=== PATIENT | male | born 1970 | race American Indian/Alaskan Native ===

== ENCOUNTER 2021-06-08 22:57 | Observation (INO) | payer OTHER ==
[2021-06-08] MEDS ORDERED: NITROGLYCERIN 0.4 MG TAB SUBL SL PRN (22:59)
[2021-06-08] MEDS ORDERED: SODIUM CHLORIDE 0.9% 1000 ML 1,000 ML IV ONE (22:59)
--- NOTE | 2021-06-08 23:03 | Emergency Department Report ---
ED General Adult HPI - General Stated complaint: CHEST PAIN Time Seen by Provider: 06/08/21 22:59 - History of Present Illness Initial comments: Patient presents from nursing home by EMS secondary to chest pain. He has been having a 2-day history of a substernal chest pain described as squeezing and tightness. This does not radiate or migrate. He has felt slightly short of breath. He has not been diaphoretic. Patient states that the pain is worse with exertion. It seems to improve with rest but not resolved. Outpatient labs were obtained and resulted today. His troponin was elevated. Patient was transferred here for further management. He is still having pain upon arrival. There is no history of swelling in the legs. There is no history of recent trauma. - Related Data Allergies Allergy/AdvReac Type Severity Reaction Status Date / Time No Known Allergies Allergy Verified 06/08/21 23:11 ED Review of Systems ROS: Stated complaint: CHEST PAIN Other details as noted in HPI Comment: All other systems reviewed and negative Constitutional: denies: fever Eyes: denies: vision change ENT: denies: ear pain Respiratory: denies: cough Cardiovascular: as per HPI Endocrine: denies: unexplained weight loss Gastrointestinal: denies: abdominal pain Genitourinary: denies: dysuria Musculoskeletal: denies: back pain Skin: denies: rash Neurological: denies: headache Hematological/Lymphatic: denies: easy bruising ED Past Medical Hx - Past Medical History Previous Medical History?: Yes Hx Heart Attack/AMI: Yes Hx Congestive Heart Failure: Yes - Family History Family history: CAD/[place] ED Physical Exam - General Limitations: No Limitations, Other (Pulse ox was noted to normal. Is not hypoxic.) General appearance: alert, in no apparent distress - Head Head exam: Present: atraumatic, normocephalic, normal inspection - Eye Eye exam: Present: normal appearance, EOMI. Absent: scleral icterus - ENT ENT exam: Present: normal exam, normal orophraynx, normal external ear exam - Neck Neck exam: Present: normal inspection. Absent: meningismus - Respiratory Respiratory exam: Present: normal lung sounds bilaterally. Absent: respiratory distress - Cardiovascular Cardiovascular Exam: Present: regular rate, normal rhythm - GI/Abdominal GI/Abdominal exam: Present: soft. Absent: tenderness - Extremities Exam Extremities exam: Present: normal capillary refill. Absent: calf tenderness - Back Exam Back exam: Absent: CVA tenderness (R), CVA tenderness (L) - Neurological Exam Neurological exam: Present: alert, oriented X3, CN II-XII intact, reflexes normal. Absent: motor sensory deficit - Psychiatric Psychiatric exam: Present: normal affect, normal mood - Skin Skin exam: Present: warm, dry ED Course Vital Signs 06/08/21 06/08/21 06/08/21 23:02 23:22 23:25 Temperature 97.6 F Pulse Rate 67 71 Respiratory 13 14 Rate Blood Pressure 140/105 140/105 O2 Sat by Pulse 97 97 Oximetry - Reevaluation(s) Reevaluation #1: 06/08/21 23:02 EMS was met upon arrival. Labs and EKG were ordered. Aspirin and nitrates have been ordered. Reevaluation #2: 06/09/21 00:20 Labs of been noted. We will proceed with admission. ED Medical Decision Making - Lab Data Result diagrams: 06/08/21 23:05 06/08/21 23:05 - EKG Data -: EKG Interpreted by Me - EKG Data 06/09/21 00:13 EKG shows a normal sinus rhythm at 69 with LVH. Patient has a QRS of 105 which is normal. QT corrected is normal at 459. Patient has no ST elevation to suggest infarct. There are T wave inversions in 1 and aVL as well as V5 and V6. There is no ST elevation to suggest STEMI. There is artifact noted. - Radiology Data Radiology results: report reviewed - Medical Decision Making Patient presented from nursing home with chest pain. He has an elevated troponin. He has elevated BUN and creatinine. He acknowledges the fact that he was told that his kidneys are "not working right." We do not have any old labs available for comparison. Patient remains pain-free after sublingual nitro. He will be admitted for serial enzymes and hydration. Repeat labs can be completed in the morning. At this time, there is no radiographic evidence of pneumonia to account for his pain. This is not pleuritic. He is not hypoxic. I do not believe this represents PE. He does not have a wide mediastinum or pulse deficit to suggest aortic dissection. Critical care attestation.: If time is entered above; I have spent that time in minutes in the direct care of this critically ill patient, excluding procedure time. ED Disposition Clinical Impression: Precordial chest pain, Elevated troponin, PEÑA (acute kidney injury) Disposition: 09 ADMITTED INPATIENT Is pt being admited?: Yes Condition: Stable Instructions: Nonspecific Chest Pain, Adult
[2021-06-08] MEDS ORDERED: ASPIRIN 81 MG TAB CHEW PO ONE (23:30)
[2021-06-08 23:33] LABS: Basophils % (Auto) 0.4 % (0.0-1.8); Eosinophils # (Auto) 0.1 K/mm3 (0.0-0.4); Eosinophils % (Auto) 1.1 % (0.0-4.3); Hematocrit 40.1 % (35.5-45.6); Hemoglobin 13.6 gm/dl (11.8-15.2); Lymphocytes # (Auto) 1.9 K/mm3 (1.2-5.4); Mean Corpuscular HGB Conc 34 % (32-34); Mean Corpuscular Volume 97 fl (84-94); Monocytes # (Auto) 0.5 K/mm3 (0.0-0.8); Monocytes % (Auto) 6.6 % (0.0-7.3); Platelet Count 168 K/mm3 (140-440); Red Blood Count 4.15 M/mm3 (3.65-5.03); Red Cell Distribution Width 13.8 % (13.2-15.2)
[2021-06-08 23:45] LABS: Calcium 9.6 mg/dL (8.4-10.2)
--- NOTE | 2021-06-09 00:03 | XRay Report ---
CHEST 1 VIEW INDICATION / CLINICAL INFORMATION: Chest Pain. FINDINGS: SUPPORT DEVICES: None. HEART / MEDIASTINUM: Borderline cardiomegaly. LUNGS / PLEURA: Small right pleural effusion. The left lung is clear. Signer Name: Ronnie Pace MD Signed: 06/08/2021 11:59 PM Workstation Name: [id number]
[2021-06-09] MEDS ORDERED: ALUM-MAG HYDROXIDE-SIMETHICONE 200-200-20MG/5ML ORAL LIQD 30 ML PO PRN (00:44)
[2021-06-09] MEDS ORDERED: ACETAMINOPHEN 325 MG TAB PO PRN (00:44)
[2021-06-09] MEDS ORDERED: MAGNESIUM HYDROXIDE (MOM) ORAL LIQD UDC PO PRN (00:44)
[2021-06-09] MEDS ORDERED: ONDANSETRON 4 MG/2 ML INJ IV PRN (00:44)
[2021-06-09] MEDS ORDERED: METOCLOPRAMIDE 10 MG/2 ML INJ IV PRN (00:44)
[2021-06-09] MEDS ORDERED: oxyCODONE /ACETAMINOPHEN 5-325MG TAB PO PRN (00:44)
[2021-06-09] MEDS ORDERED: MORPHINE 2 MG/1 ML INJ IV PRN (00:44)
[2021-06-09] MEDS ORDERED: SENNOSIDES 8.6 MG TAB PO PRN (00:44)
[2021-06-09] MEDS ORDERED: MORPHINE 4 MG/1 ML INJ IV PRN (00:44)
[2021-06-09] MEDS ORDERED: traZODone 50 MG TAB PO PRN (00:54)
--- NOTE | 2021-06-09 01:03 | History and Physical Report ---
History of Present Illness Date of examination: 06/09/21 Date of admission: 06/09/21 Chief complaint: Chest pain History of present illness: Patient presents from skilled nursing by EMS secondary to chest pain. Patient reports 2- day history of a substernal chest pain. He described it as squeezing and tightness. Patient reported that he has a history of heart problems and is being seen in [place] by paper machine backtender. His blood work showed elevated troponins. His kidney function is reduced with elevated creatinine. Patient also reported that he has kidney problem and has been seen by metal spray operator also in [place]. Per ED notes, there is no previous medical record to compare with patient status. I discussed with the attendingpatient is started on heparin drip. Bid Manager has been consulted. Echocardiogram ordered. Patient admits tobacco use, but he denies chronic alcohol use and illicit drug use. Past History Past Medical History: hypertension, renal failure Past Surgical History: No surgical history Social history: Lives alone, smoking, full code. denies: alcohol abuse, IV drug use Family history: diabetes (Mother has hypertension and brother has diabetes), hypertension Medications and Allergies Allergies Allergy/AdvReac Type Severity Reaction Status Date / Time No Known Allergies Allergy Verified 06/08/21 23:11 Active Meds: Active Medications Acetaminophen (Acetaminophen 325 Mg Tab) 650 mg PO Q4H PRN PRN Reason: Pain MILD(1-3)/Fever >100.5/MANZANARES Al Hydrox/Mg Hydrox/Simethicone (Alum-Mag Hydroxide-Simethicone 460-694-71pb/5ml Oral Liqd 30 Ml) 30 ml PO Q4H PRN PRN Reason: Indigestion Aspirin (Aspirin Ec 81 Mg Tab) 81 mg PO QDAY SRIDHAR Atorvastatin Calcium (Atorvastatin 40 Mg Tab) 40 mg PO QHS SRIDHAR Sodium Chloride (Nacl 0.9% 1000 Ml) 1,000 mls @ 100 mls/hr IV DIRECT SRIDHAR Magnesium Hydroxide (Magnesium Hydroxide (Mom) Oral Liqd Udc) 30 ml PO Q4H PRN PRN Reason: Constipation Metoclopramide HCl (Metoclopramide 10 Mg/2 Ml Inj) 5 mg IV Q6H PRN PRN Reason: Nausea And Vomiting Morphine Sulfate (Morphine 2 Mg/1 Ml Inj) 2 mg IV Q4H PRN PRN Reason: Pain, Moderate (4-6) Morphine Sulfate (Morphine 4 Mg/1 Ml Inj) 4 mg IV Q4H PRN PRN Reason: Pain , Severe (7-10) Nitroglycerin (Nitroglycerin 0.4 Mg Tab Subl) 0.4 mg SL Q5M PRN PRN Reason: Chest Pain Last Admin: 06/08/21 23:22 Dose: 0.4 mg Documented by: Ondansetron HCl (Ondansetron 4 Mg/2 Ml Inj) 4 mg IV Q8H PRN PRN Reason: Nausea And Vomiting Oxycodone/Acetaminophen (Oxycodone /Acetaminophen 5-325mg Tab) 1 tab PO Q6H PRN PRN Reason: Pain, Moderate (4-6) Senna (Sennosides 8.6 Mg Tab) 8.6 mg PO Q12HR PRN PRN Reason: Constipation Sodium Chloride (Sodium Chloride 0.9% 10 Ml Flush Syringe) 10 ml IV BID SRIDHAR Trazodone HCl (Trazodone 50 Mg Tab) 50 mg PO QHS PRN PRN Reason: Insomnia Review of Systems Ears, nose, mouth and throat: no epistaxis, no bleeding gums Cardiovascular: chest pain, palpitations, high blood pressure Respiratory: no congestion Gastrointestinal: no melena Rectal: no itching, no hemorrhoids Integumentary: no rash, no pruritis, no redness Psychiatric: no hypersomnia Hematologic/Lymphatic: no easy bruising, no easy bleeding, no lymphadenopathy, no lymphedema Exam - Constitutional Vitals: Temp Pulse Resp BP Pulse Ox 97.6 F 71 14 140/105 97 06/08/21 23:02 06/08/21 23:22 06/08/21 23:25 06/08/21 23:22 06/08/21 23:25 General appearance: Present: mild distress, well-nourished - EENT Eyes: Present: PERRL ENT: hearing intact, clear oral mucosa - Neck Neck: Present: supple, normal ROM - Respiratory Respiratory effort: normal Respiratory: bilateral: CTA - Cardiovascular Heart rate: 74 Heart Sounds: Present: S1 & S2. Absent: rub, click - Extremities Extremities: pulses symmetrical, No edema Peripheral Pulses: within normal limits - Abdominal General gastrointestinal: Present: soft, non-tender, non-distended, normal bowel sounds Male genitourinary: Present: normal - Integumentary Integumentary: Present: clear, warm, dry - Musculoskeletal Musculoskeletal: gait normal, strength equal bilaterally - Psychiatric Psychiatric: appropriate mood/affect, intact judgment & insight, cooperative - Neurologic Neurologic: CNII-XII intact, moves all extremities - Allied Health Allied health notes reviewed: nursing HEART Score - HEART Score Troponin: Troponin T 0.132 ng/mL (0.00-0.029) H* 06/08/21 23:05 Results - Labs CBC & Chem 7: 06/09/21 01:08 06/08/21 23:05 Labs: Abnormal lab results 06/08/21 06/08/21 Range/Units 23:05 23:05 MCV 97 H (84-94) fl MCH 33 H (28-32) pg Potassium 5.3 H (3.6-5.0) mmol/L Chloride 108.0 H (98-107) mmol/L Carbon Dioxide 18 L (22-30) mmol/L BUN 58 H (9-20) mg/dL Creatinine 4.9 H (0.8-1.3) mg/dL Glucose 67 L (75-100) mg/dL Troponin T 0.132 H* (0.00-0.029) ng/mL Assessment and Plan - Patient Problems (1) PEÑA (acute kidney injury) Current Visit: Yes Status: Acute Plan to address problem: Unknown etiology/if chronicno previous lab values to compare IV hydration and monitor kidney function Renal ultrasound and metal spray operator consult Urine osmolarity and urine sodium (2) Elevated troponin Current Visit: Yes Status: Acute Plan to address problem: Questionable causecardiac/acute kidney injury Trend troponin Discussed with the attendingstarted on heparin drip (3) Precordial chest pain Current Visit: Yes Status: Acute Plan to address problem: Chest pain improving at time of assessment Cardioprotective measures antiplatelet and statin Echocardiogram ordered Consults cardiologistfollow-up with plan of care (4) Hyperkalemia Current Visit: Yes Status: Acute Plan to address problem: Likely secondary to kidney injury K oxalate x1 Monitor potassium level (5) DVT prophylaxis Current Visit: Yes Status: Acute Plan to address problem: Heparin drip
[2021-06-09] MEDS ORDERED: hydrALAZINE 20 MG/1 ML INJ IV PRN ×2 (01:21→04:00)
[2021-06-09] MEDS ORDERED: SODIUM POLYSTYRENE 15 GM/60 ML ORAL LIQD PO ONE (01:41)
[2021-06-09 02:00] LABS: Hematocrit 37.6 % (35.5-45.6); Hemoglobin 12.9 gm/dl (11.8-15.2)
[2021-06-09 02:11] LABS: INR 1.03 (0.87-1.13)
[2021-06-09 02:12] LABS: Partial Thromboplastin Time 25.3 Sec. (24.2-36.6)
[2021-06-09 02:26] LABS: Chol/HDL Ratio 4.16 %
[2021-06-09] MEDS: HEPARIN/ 0.45% NACL DRIP 25,000 UNIT/500 ML BAG IV SCH (02:48)
[2021-06-09] MEDS: SODIUM CHLORIDE 0.9% 1000 ML 1,000 ML IV SCH ×2 (04:20→14:58)
[2021-06-09 04:54] LABS: Osmolality,Urine 378 Mosm/kg
--- NOTE | 2021-06-09 10:57 | Consultation ---
History of Present Illness Consult date: 06/09/21 Consult reason: chest pain, congestive heart failure History of present illness: 51-year-old -English male presenting from the [facility] with symptoms of chest pain and chest tightness. As per patient's history he has a history of heart failure and is followed by police dispatcher at [facility]. He was told that his heart was weak but a cardiac catheterization could not be done because of his kidney failure. His chest pain is directly substernal nonexertional described as a chest tightness. Past History Past Medical History: heart failure, hypertension, renal failure Past Surgical History: No surgical history Social history: Lives alone, smoking, alcohol abuse, IV drug use, full code Family history: diabetes (Mother has hypertension and brother has diabetes), hypertension Medications and Allergies Allergies Allergy/AdvReac Type Severity Reaction Status Date / Time No Known Allergies Allergy Verified 06/08/21 23:11 Active Meds: Active Medications Acetaminophen (Acetaminophen 325 Mg Tab) 650 mg PO Q4H PRN PRN Reason: Pain MILD(1-3)/Fever >100.5/MANZANARES Al Hydrox/Mg Hydrox/Simethicone (Alum-Mag Hydroxide-Simethicone 141-164-86nd/5ml Oral Liqd 30 Ml) 30 ml PO Q4H PRN PRN Reason: Indigestion Aspirin (Aspirin Ec 81 Mg Tab) 81 mg PO QDAY SRIDHAR Atorvastatin Calcium (Atorvastatin 40 Mg Tab) 40 mg PO QHS SRIDHAR Hydralazine HCl (Hydralazine 20 Mg/1 Ml Inj) 5 mg IV Q4H PRN PRN Reason: Hypertension Sodium Chloride (Nacl 0.9% 1000 Ml) 1,000 mls @ 100 mls/hr IV DIRECT SRIDHAR Last Admin: 06/09/21 04:20 Dose: 100 mls/hr Documented by: Heparin Sodium/Sodium Chloride (Heparin/ 0.45% Nacl-25,000 Unit/500 Ml) 25,000 unit in 500 mls @ 21 mls/hr IV TITR SRIDHAR; Protocol Last Admin: 06/09/21 02:48 Dose: 1,050 units/hr, 21 mls/hr Documented by: Magnesium Hydroxide (Magnesium Hydroxide (Mom) Oral Liqd Udc) 30 ml PO Q4H PRN PRN Reason: Constipation Metoclopramide HCl (Metoclopramide 10 Mg/2 Ml Inj) 5 mg IV Q6H PRN PRN Reason: Nausea And Vomiting Morphine Sulfate (Morphine 2 Mg/1 Ml Inj) 2 mg IV Q4H PRN PRN Reason: Pain, Moderate (4-6) Morphine Sulfate (Morphine 4 Mg/1 Ml Inj) 4 mg IV Q4H PRN PRN Reason: Pain , Severe (7-10) Nitroglycerin (Nitroglycerin 0.4 Mg Tab Subl) 0.4 mg SL Q5M PRN PRN Reason: Chest Pain Last Admin: 06/08/21 23:22 Dose: 0.4 mg Documented by: Ondansetron HCl (Ondansetron 4 Mg/2 Ml Inj) 4 mg IV Q8H PRN PRN Reason: Nausea And Vomiting Oxycodone/Acetaminophen (Oxycodone /Acetaminophen 5-325mg Tab) 1 tab PO Q6H PRN PRN Reason: Pain, Moderate (4-6) Senna (Sennosides 8.6 Mg Tab) 8.6 mg PO Q12HR PRN PRN Reason: Constipation Sodium Chloride (Sodium Chloride 0.9% 10 Ml Flush Syringe) 10 ml IV BID SRIDHAR Trazodone HCl (Trazodone 50 Mg Tab) 50 mg PO QHS PRN PRN Reason: Insomnia Review of Systems Constitutional: no weight loss, no weight gain, no sweats Ears, nose, mouth and throat: no deferred, no ear pain, no ear discharge, no tinnitis Cardiovascular: no chest pain Respiratory: shortness of breath, dyspnea on exertion, no cough, no cough with sputum, no excessive sputum, no hemoptysis Gastrointestinal: no abdominal pain, no nausea, no diarrhea Genitourinary Male: no dysuria, no hematuria, no flank pain Musculoskeletal: no neck stiffness, no neck pain, no shooting arm pain Integumentary: no deferred, no rash, no pruritis, no redness Neurological: no head injury, no transient paralysis, no paralysis, no weakness, no parathesias, no numbness, no tingling Psychiatric: no anxiety, no memory loss, no change in sleep habits Endocrine: no cold intolerance, no heat intolerance, no polyphagia, no excessive thirst, no polydipsia, no polyuria Hematologic/Lymphatic: no easy bruising, no easy bleeding Allergic/Immunologic: no urticaria, no allergic rhinitis, no wheezing Physical Examination Vital Signs Temp Pulse Resp BP Pulse Ox 97.6 F 67 13 140/105 97 06/08/21 23:02 06/08/21 23:02 06/08/21 23:02 06/08/21 23:02 06/08/21 23:02 General appearance: no acute distress HEENT: Positive: PERRL, Normocephaly, Mucus Membranes Moist Neck: Positive: neck supple, trachea midline. Negative: JVD/HJR Cardiac: Positive: Regular Rate, S1/S2, S3, S4, PMI, Dilated, Laterally Di splaced Lungs: Positive: clear to auscultation, No Wheeze, Rales, Rhonchi Neuro: Positive: Grossly Intact Abdomen: Positive: Unremarkable, Soft, Active Bowel Sounds Skin: Positive: Clear. Negative: Rash Extremities: Absent: edema Results 06/09/21 01:08 06/08/21 23:05 Coagulation 06/09/21 Range/Units 01:08 PT 14.0 (12.2-14.9) Sec. INR 1.03 (0.87-1.13) APTT 25.3 (24.2-36.6) Sec. Lipids 06/08/21 Range/Units 23:05 Triglycerides 135 (2-149) mg/dL Cholesterol 200 H (50-199) mg/dL HDL Cholesterol 48 (40-59) mg/dL Cholesterol/HDL Ratio 4.16 % CBC 06/08/21 06/09/21 Range/Units 23:05 01:08 WBC 7.4 (4.5-11.0) K/mm3 RBC 4.15 (3.65-5.03) M/mm3 Hgb 13.6 12.9 (11.8-15.2) gm/dl Hct 40.1 37.6 (35.5-45.6) % Plt Count 168 154 (140-440) K/mm3 Lymph # (Auto) 1.9 (1.2-5.4) K/mm3 Barron # (Auto) 0.5 (0.0-0.8) K/mm3 Eos # (Auto) 0.1 (0.0-0.4) K/mm3 Baso # (Auto) 0.0 (0.0-0.1) K/mm3 Comprehensive Metabolic Panel 06/08/21 Range/Units 23:05 Sodium 143 (137-145) mmol/L Potassium 5.3 H (3.6-5.0) mmol/L Chloride 108.0 H (98-107) mmol/L Carbon Dioxide 18 L (22-30) mmol/L BUN 58 H (9-20) mg/dL Creatinine 4.9 H (0.8-1.3) mg/dL Glucose 67 L (75-100) mg/dL Calcium 9.6 (8.4-10.2) mg/dL - EKG Interpretation EKG: sinus rhythm, normal axis EKG interpretations - Telemetry EKG Rhythm: Sinus Rhythm Assessment and Plan 1. Chest pain rule out ischemic coronary artery disease 2. Chronic combined systolic and diastolic heart failure 3. Dilated cardiomyopathy 4. Chronic kidney disease stage IV 5. Essential hypertension. 6. Elevated serum troponin levels equivocal in the setting of chronic kidney disease Echocardiogram shows a dilated eccentric left ventricle with severe global hypokinesis left ventricular ejection fraction is approximately 15% to 20% Plan. Patient is to be started on pre and afterload reducing agent stress myocardial perfusion scan imaging test will be done to assess for the presence and extent of ischemic coronary artery disease. Nephrology consult for fluid and renal management
--- NOTE | 2021-06-09 11:52 | Ultrasound Report ---
ULTRASOUND RENAL INDICATION / CLINICAL INFORMATION: Acute kidney injury. COMPARISON: None available. FINDINGS: RIGHT KIDNEY: Size (in cm): 9.3 - Echogenicity: Increased - Cortical Thickness: Normal. - Hydronephrosis: None. - Cyst or mass: 1.7 cm superior pole right renal cyst. - Stones: None seen. LEFT KIDNEY: Size (in cm): 8.2 - Echogenicity: Increased - Cortical Thickness: Normal. - Hydronephrosis: None. - Cyst or mass: 2 left renal cysts, largest measuring 2.1 cm. - Stones: None seen. URINARY BLADDER: No significant abnormality. FREE FLUID: None. ADDITIONAL FINDINGS: None. IMPRESSION: 1. Diffuse increased cortical echogenicity, consistent with medical renal disease. No evidence of hyd ronephrosis. 2. Bilateral renal cysts. Signer Name: Ashkan Gu MD Signed: 06/09/2021 11:47 AM Workstation Name: [id number]
[2021-06-09] MEDS: ASPIRIN EC 81 MG TAB PO SCH (12:11)
[2021-06-09 12:32] LABS: Calcium 8.9 mg/dL (8.4-10.2)
--- NOTE | 2021-06-09 14:49 | Consultation ---
History of Present Illness - Reason for Consult Consult date: 06/09/21 acute renal failure Requesting physician: SAILAJA RASHEED - History of Present Illness Patient presents from group home by EMS secondary to chest pain. Patient reports 2- day history of a substernal chest pain. He described it as squeezing and tightness. Patient reported that he has a history of heart problems and is being seen in [place] by overage shortage and damage clerk. His blood work showed elevated troponins. His kidney function is reduced with elevated creatinine. Patient also reported that he has kidney problem and has been seen by supervisor uranium processing also in [place]. Per ED notes, there is no previous medical record to compare with patient status. I discussed with the attendingpatient is started on heparin drip. Rn Social Services has been consulted. Echocardiogram ordered. Patient admits tobacco use, but he denies chronic alcohol use and illicit drug use. Past History Past Medical History: hypertension, renal failure Past Surgical History: No surgical history Social history: Lives alone, smoking, full code. denies: alcohol abuse, IV drug use Family history: diabetes (Mother has hypertension and brother has diabetes), hypertension Review of Systems Ears, nose, mouth and throat: no epistaxis, no bleeding gums Cardiovascular: chest pain, palpitations, high blood pressure Respiratory: no congestion Gastrointestinal: no melena Rectal: no itching, no hemorrhoids Integumentary: no rash, no pruritis, no redness Psychiatric: no hypersomnia Hematologic/Lymphatic: no easy bruising, no easy bleeding, no lymphadenopathy, no lymphedema Past History Past Medical History: heart failure, hypertension, renal failure Past Surgical History: No surgical history Social history: Lives alone, smoking, alcohol abuse, IV drug use, full code Family history: diabetes (Mother has hypertension and brother has diabetes), hypertension Medications and Allergies Allergies Allergy/AdvReac Type Severity Reaction Status Date / Time No Known Allergies Allergy Verified 06/08/21 23:11 Active Meds: Active Medications Acetaminophen (Acetaminophen 325 Mg Tab) 650 mg PO Q4H PRN PRN Reason: Pain MILD(1-3)/Fever >100.5/MANZANARES Al Hydrox/Mg Hydrox/Simethicone (Alum-Mag Hydroxide-Simethicone [id number]/5ml Oral Liqd 30 Ml) 30 ml PO Q4H PRN PRN Reason: Indigestion Aspirin (Aspirin Ec 81 Mg Tab) 81 mg PO QDAY [facility] Last Admin: 06/09/21 12:11 Dose: 81 mg Documented by: Atorvastatin Calcium (Atorvastatin 40 Mg Tab) 40 mg PO QHS [facility] Hydralazine HCl (Hydralazine 20 Mg/1 Ml Inj) 5 mg IV Q4H PRN PRN Reason: Hypertension Sodium Chloride (Nacl 0.9% 1000 Ml) 1,000 mls @ 100 mls/hr IV DIRECT SRIDHAR Last Admin: 06/09/21 04:20 Dose: 100 mls/hr Documented by: Heparin Sodium/Sodium Chloride (Heparin/ 0.45% Nacl-25,000 Unit/500 Ml) 25,000 unit in 500 mls @ 21 mls/hr IV TITR SRIDHAR; Protocol Last Titration: 06/09/21 12:07 Dose: 1,100 units/hr, 22 mls/hr Documented by: Magnesium Hydroxide (Magnesium Hydroxide (Mom) Oral Liqd Udc) 30 ml PO Q4H PRN PRN Reason: Constipation Metoclopramide HCl (Metoclopramide 10 Mg/2 Ml Inj) 5 mg IV Q6H PRN PRN Reason: Nausea And Vomiting Morphine Sulfate (Morphine 2 Mg/1 Ml Inj) 2 mg IV Q4H PRN PRN Reason: Pain, Moderate (4-6) Morphine Sulfate (Morphine 4 Mg/1 Ml Inj) 4 mg IV Q4H PRN PRN Reason: Pain , Severe (7-10) Nitroglycerin (Nitroglycerin 0.4 Mg Tab Subl) 0.4 mg SL Q5M PRN PRN Reason: Chest Pain Last Admin: 06/08/21 23:22 Dose: 0.4 mg Documented by: Ondansetron HCl (Ondansetron 4 Mg/2 Ml Inj) 4 mg IV Q8H PRN PRN Reason: Nausea And Vomiting Oxycodone/Acetaminophen (Oxycodone /Acetaminophen 5-325mg Tab) 1 tab PO Q6H PRN PRN Reason: Pain, Moderate (4-6) Senna (Sennosides 8.6 Mg Tab) 8.6 mg PO Q12HR PRN PRN Reason: Constipation Sodium Chloride (Sodium Chloride 0.9% 10 Ml Flush Syringe) 10 ml IV BID [facility] Last Admin: 06/09/21 12:11 Dose: 10 ml Documented by: Trazodone HCl (Trazodone 50 Mg Tab) 50 mg PO QHS PRN PRN Reason: Insomnia Exam - Vital Signs Vital signs: Vital Signs Temp Pulse Resp BP Pulse Ox 97.6 F 67 13 140/105 97 06/08/21 23:02 06/08/21 23:02 06/08/21 23:02 06/08/21 23:02 06/08/21 23:02 - Physical Exam Narrative exam: primary team exam noted, deferred for preservation of PPE Results - Lab Results 06/09/21 01:08 06/09/21 06:42 Most recent lab results Calcium 8.9 mg/dL (8.4-10.2) 06/09/21 06:42 Urine Sodium 135 mmol/L 06/09/21 Unknown Assessment and Plan Impression: * PEÑA on advanced CKD--unsure of baseline stage * metabolic acidosis * Cardiomyopathy--ef 15 to 20% * COVID PUI * HTN Plan: * rec Covid testing * cr better, no emergent indication for STATISTICAL METHODS PROFESSOR today * add bicarb po and low k diet * fluid restriction and follow up 24hr crcl * strict i/os and daily lytes * renal diet * avoid nephrotoxins * cards labs reviewed * renal us noted
[2021-06-09] MEDS: SODIUM BICARBONATE 650 MG TAB PO SCH ×3 (14:58→21:42)
--- NOTE | 2021-06-09 16:03 | Event Note ---
Date: 06/09/21 51-year-old male presented to the hospital with complaints of chest pain Work-up showed elevated creatinine with elevated troponin Placed on heparin drip, cardiology and nephrology consulted Continue to provide medical management, follow daily labs
[2021-06-10 00:09] LABS: Bilirubin,Urine NEG (Negative); Blood,Urine SM (Negative); Color,Urine Straw (Yellow); Mucus,Urine FEW /HPF; Urobilinogen,Urine < 2.0 mg/dL (<2.0); WBC,Urine < 1.0 /HPF (0.0-6.0)
[2021-06-10] MEDS: HEPARIN/ 0.45% NACL DRIP 25,000 UNIT/500 ML BAG IV SCH (00:14)
[2021-06-10] MEDS: SODIUM CHLORIDE 0.9% 1000 ML 1,000 ML IV SCH ×3 (00:15→10:29)
[2021-06-10 03:01] LABS: Basophils % (Auto) 0.5 % (0.0-1.8); Eosinophils # (Auto) 0.1 K/mm3 (0.0-0.4); Eosinophils % (Auto) 1.3 % (0.0-4.3); Hematocrit 38.2 % (35.5-45.6); Hemoglobin 13.1 gm/dl (11.8-15.2); Lymphocytes # (Auto) 1.9 K/mm3 (1.2-5.4); Lymphocytes % (Auto) 28.7 % (13.4-35.0); Mean Corpuscular HGB Conc 34 % (32-34); Mean Corpuscular Volume 96 fl (84-94); Monocytes # (Auto) 0.3 K/mm3 (0.0-0.8); Monocytes % (Auto) 5.1 % (0.0-7.3); Platelet Count 141 K/mm3 (140-440); Red Blood Count 3.99 M/mm3 (3.65-5.03); Red Cell Distribution Width 13.8 % (13.2-15.2)
[2021-06-10 03:10] LABS: Albumin 3.1 g/dL (3.9-5); Calcium 8.5 mg/dL (8.4-10.2)
[2021-06-10 06:58] LABS: Calcium 8.4 mg/dL (8.4-10.2)
[2021-06-10] MEDS ORDERED: HEPARIN 10,000 UNITS/10 ML VIAL IV PRN (08:40)
[2021-06-10 08:46] VITALS: BP 98/61
--- NOTE | 2021-06-10 09:58 | Progress Note ---
Assessment and Plan 1. Chest pain resolved 2. Chronic combined systolic and diastolic heart failure 3. Dilated cardiomyopathy LVEF 15-20% 4. Chronic kidney disease stage IV 5. Essential hypertension. 6. Elevated serum troponin levels equivocal in the setting of chronic kidney disease Echocardiogram shows a dilated eccentric left ventricle with severe global hypokinesis left ventricular ejection fraction is approximately 15% to 20% Plan. Patient is to be started on pre and afterload reducing agent stress myocardial perfusion scan imaging test will be done to assess for the presence and extent of ischemic coronary artery disease. Nephrology consult for fluid and renal management Subjective Date of service: 06/10/21 Interval history: No cardiac symptoms. Objective Vital Signs Temp Pulse Resp BP Pulse Ox 06/10/21 08:23 96 06/10/21 08:14 97.9 F 55 L 18 98/61 99 06/10/21 04:36 98.1 F 86 20 127/81 97 06/09/21 23:59 97.9 F 75 18 151/100 96 06/09/21 22:00 96 06/09/21 21:01 76 06/09/21 20:59 99 06/09/21 20:40 98.2 F 83 18 133/90 98 06/09/21 18:08 141/102 06/09/21 15:59 97.9 F 80 18 141/102 99 06/09/21 15:50 76 06/09/21 14:24 18 98 06/09/21 11:48 98.4 F 75 18 138/100 99 06/09/21 10:11 80 18 141/105 100 06/09/21 10:01 73 13 142/106 99 - Physical Examination HEENT: Positive: PERRL, Normocephaly, Mucus Membranes Moist Neck: Positive: neck supple, trachea midline. Negative: JVD/HJR Cardiac: Positive: Regular Rate, S1/S2, S3, S4, Gallop, PMI, Dilated, Laterally Displaced Lungs: Positive: clear to auscultation, No Wheeze, Rales, Rhonchi Neuro: Positive: Grossly Intact Abdomen: Positive: Unremarkable, Soft, Active Bowel Sounds Skin: Positive: Clear. Negative: Rash Extremities: Absent: edema - Labs and Meds Cardiac Enzymes 06/10/21 Range/Units 02:16 AST 42 H (5-40) units/L CBC 06/10/21 Range/Units 02:16 WBC 6.5 (4.5-11.0) K/mm3 RBC 3.99 (3.65-5.03) M/mm3 Hgb 13.1 (11.8-15.2) gm/dl Hct 38.2 (35.5-45.6) % Plt Count 141 (140-440) K/mm3 Lymph # (Auto) 1.9 (1.2-5.4) K/mm3 Garrett # (Auto) 0.3 (0.0-0.8) K/mm3 Eos # (Auto) 0.1 (0.0-0.4) K/mm3 Baso # (Auto) 0.0 (0.0-0.1) K/mm3 Comprehensive Metabolic Panel 06/09/21 06/10/21 06/10/21 Range/Units 06:42 02:16 06:06 Sodium 141 138 139 (137-145) mmol/L Potassium 5.1 H 4.7 4.8 (3.6-5.0) mmol/L Chloride 109.8 H 107.4 H 110.3 H (98-107) mmol/L Carbon Dioxide 15 L 19 L 18 L (22-30) mmol/L BUN 53 H 57 H 54 H (9-20) mg/dL Creatinine 4.2 H 4.2 H 4.0 H (0.8-1.3) mg/dL Glucose 81 144 H 81 (75-100) mg/dL Calcium 8.9 8.5 8.4 (8.4-10.2) mg/dL AST 42 H (5-40) units/L ALT 46 (7-56) units/L Alkaline Phosphatase 81 (35-129) units/L Total Protein 5.5 L (6.3-8.2) g/dL Albumin 3.1 L (3.9-5) g/dL - Telemetry EKG Rhythm: Sinus Rhythm - EKG Sinus rhythms and dysrhythmias: sinus rhythm
[2021-06-10] MEDS: SODIUM BICARBONATE 650 MG TAB PO SCH (10:30)
[2021-06-10] MEDS: ASPIRIN EC 81 MG TAB PO SCH (10:30)
--- NOTE | 2021-06-10 10:36 | Progress Note ---
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 * added bicarb po and low k diet * add bicarb gtt and follow up CO2 * fluid restriction and follow up 24hr crcl * strict i/os and daily lytes * renal diet * avoid nephrotoxins * cards labs reviewed * renal us noted Subjective Date of service: 06/10/21 Principal diagnosis: peña on ckd Interval history: labs and chart reviewed cards plans noted Objective - Exam Narrative Exam: primary team exam noted, deferred for preservation of PPE - Vital Signs Vital signs: Vital Signs - 12hr 06/09/21 06/10/21 06/10/21 23:59 04:36 08:14 Temperature 97.9 F 98.1 F 97.9 F Pulse Rate 75 86 55 L Respiratory 18 20 18 Rate Blood Pressure 151/100 127/81 98/61 O2 Sat by Pulse 96 97 99 Oximetry 06/10/21 08:23 Temperature Pulse Rate Respiratory Rate Blood Pressure O2 Sat by Pulse 96 Oximetry - Lab 06/10/21 02:16 06/10/21 06:06 Most recent lab results Calcium 8.4 mg/dL (8.4-10.2) 06/10/21 06:06 Urine Sodium 135 mmol/L 06/09/21 Unknown Medications & Allergies - Medications Allergies/Adverse Reactions: Allergies No Known Allergies Allergy (Verified 06/08/21 23:11) Active Medications: Generic Name Dose Route Start Last Admin Trade Name Freq PRN Reason Stop Dose Admin Acetaminophen 650 mg 06/09/21 00:44 Acetaminophen 325 Mg Tab PO Q4H PRN Pain MILD(1-3)/Fever >100.5/MANZANARES Al Hydrox/Mg Hydrox/Simethicone 30 ml 06/09/21 00:44 Alum-Mag Hydroxide-Simethicone 929-230-23ie/5ml Oral Liqd 30 Ml PO Q4H PRN Indigestion Aspirin 81 mg 06/09/21 10:00 06/10/21 10:30 Aspirin Ec 81 Mg Tab PO 81 mg QDAY SRIDHAR Administration Atorvastatin Calcium 40 mg 06/09/21 22:00 06/09/21 21:42 Atorvastatin 40 Mg Tab PO 40 mg QHS SRIDHAR Administration Heparin Sodium (Porcine) 2,800 unit 06/10/21 08:40 Heparin 10,000 Units/10 Ml Vial 40 unit/kg (2800 unit) IV Q6H PRN Anti-Xa Assay < 0.1 units/ml Hydralazine HCl 5 mg 06/09/21 01:21 06/09/21 18:08 Hydralazine 20 Mg/1 Ml Inj IV 5 mg Q4H PRN Administration Hypertension Sodium Chloride 1,000 mls @ 100 mls/hr 06/09/21 00:45 06/10/21 10:29 Nacl 0.9% 1000 Ml IV 100 mls/hr DIRECT SRIDHAR Administration Heparin Sodium/Sodium Chloride 25,000 unit in 500 mls @ 21 mls/hr 06/09/21 01:00 06/10/21 00:14 Heparin/ 0.45% Nacl-25,000 Unit/500 Ml IV 1,100 units/hr TITR SRIDHAR 22 mls/hr Administration Protocol 1,050 UNITS/HR Magnesium Hydroxide 30 ml 06/09/21 00:44 Magnesium Hydroxide (Mom) Oral Liqd Udc PO Q4H PRN Constipation Metoclopramide HCl 5 mg 06/09/21 00:44 Metoclopramide 10 Mg/2 Ml Inj IV Q6H PRN Nausea And Vomiting Morphine Sulfate 2 mg 06/09/21 00:44 Morphine 2 Mg/1 Ml Inj IV Q4H PRN Pain, Moderate (4-6) Morphine Sulfate 4 mg 06/09/21 00:44 Morphine 4 Mg/1 Ml Inj IV Q4H PRN Pain , Severe (7-10) Nitroglycerin 0.4 mg 06/08/21 22:59 06/08/21 23:22 Nitroglycerin 0.4 Mg Tab Subl SL 0.4 mg Q5M PRN Administration Chest Pain Ondansetron HCl 4 mg 06/09/21 00:44 Ondansetron 4 Mg/2 Ml Inj IV Q8H PRN Nausea And Vomiting Oxycodone/Acetaminophen 1 tab 06/09/21 00:44 Oxycodone /Acetaminophen 5-325mg Tab PO Q6H PRN Pain, Moderate (4-6) Senna 8.6 mg 06/09/21 00:44 Sennosides 8.6 Mg Tab PO Q12HR PRN Constipation Sodium Bicarbonate 1,300 mg 06/09/21 16:00 06/10/21 10:30 Sodium Bicarbonate 650 Mg Tab PO 1,300 mg BID SRIDHAR Administration Sodium Chloride 10 ml 06/09/21 10:00 06/10/21 10:30 Sodium Chloride 0.9% 10 Ml Flush Syringe IV 10 ml BID SRIDHAR Administration Trazodone HCl 50 mg 06/09/21 00:54 Trazodone 50 Mg Tab PO QHS PRN Insomnia
[2021-06-10] MEDS ORDERED: SODIUM BICARBONATE 75 MEQ in SODIUM CHLORIDE 0.45% 1000 ML 1,000 ML IV SCH (11:00)
[2021-06-10] MEDS ORDERED: SODIUM CHLORIDE 0.45% 1000 ML 1,000 ML with SODIUM BICARBONATE 75 MEQ IV SCH (11:00)
--- NOTE | 2021-06-10 12:31 | Progress Note ---
Assessment and Plan (1) PEÑA (acute kidney injury) Current Visit: Yes Status: Acute Plan to address problem: Unknown etiology/if chronicno previous lab values to compare IV hydration and monitor kidney function Renal ultrasound and human resources admin consult Urine osmolarity and urine sodium (2) Elevated troponin Current Visit: Yes Status: Acute Plan to address problem: Questionable causecardiac/acute kidney injury Trend troponin Discussed with the attendingstarted on heparin drip (3) Precordial chest pain Current Visit: Yes Status: Acute Plan to address problem: Chest pain improving at time of assessment Cardioprotective measures antiplatelet and statin Echocardiogram ordered Consults cardiologistfollow-up with plan of care (4) Hyperkalemia Current Visit: Yes Status: Acute Plan to address problem: Likely secondary to kidney injury K oxalate x1 Monitor potassium level (5) DVT prophylaxis Current Visit: Yes Status: Acute Plan to address problem: Heparin drip Daily clinical course: 06/10/21: Patient remains on heparin drip, also initiated on bicarbonate drip for metabolic acidosis and PEÑA. Plan for stress test tomorrow Subjective Date of service: 06/10/21 Principal diagnosis: peña on ckd Objective - Constitutional Vitals: Vital Signs - 12hr 06/10/21 06/10/21 06/10/21 04:36 08:14 08:23 Temperature 98.1 F 97.9 F Pulse Rate 86 55 L Respiratory 20 18 Rate Blood Pressure 127/81 98/61 O2 Sat by Pulse 97 99 96 Oximetry 06/10/21 06/10/21 09:00 11:00 Temperature Pulse Rate 82 Respiratory Rate Blood Pressure O2 Sat by Pulse 98 Oximetry - Labs CBC & Chem 7: 06/10/21 02:16 06/10/21 06:06 Labs: Abnormal lab results 06/09/21 06/10/21 06/10/21 Range/Units 06:42 02:16 02:16 MCV 96 H (84-94) fl MCH 33 H (28-32) pg Potassium 5.1 H (3.6-5.0) mmol/L Chloride 109.8 H 107.4 H (98-107) mmol/L Carbon Dioxide 15 L 19 L (22-30) mmol/L BUN 53 H 57 H (9-20) mg/dL Creatinine 4.2 H 4.2 H (0.8-1.3) mg/dL Glucose 144 H (75-100) mg/dL AST 42 H (5-40) units/L Total Protein 5.5 L (6.3-8.2) g/dL Albumin 3.1 L (3.9-5) g/dL 06/10/21 Range/Units 06:06 MCV (84-94) fl MCH (28-32) pg Potassium (3.6-5.0) mmol/L Chloride 110.3 H (98-107) mmol/L Carbon Dioxide 18 L (22-30) mmol/L BUN 54 H (9-20) mg/dL Creatinine 4.0 H (0.8-1.3) mg/dL Glucose (75-100) mg/dL AST (5-40) units/L Total Protein (6.3-8.2) g/dL Albumin (3.9-5) g/dL HEART Score - HEART Score Troponin: Troponin T 0.122 ng/mL (0.00-0.029) H* 06/09/21 06:42
--- NOTE | 2021-06-11 12:04 | Discharge Summary ---
Providers - Providers Date of Admission: 06/09/21 00:44 Date of discharge: 06/11/21 Attending physician: BRITNEY RODAS 06/09/21 Consult to Cardiac Rehabilitation [CONS] Routine Reason For Exam: Phase 1 06/09/21 00:44 Consult to Cardiology [CONS] Routine Consulting Provider: ULISES ELIAS Reason For Exam: elevated troponin 06/09/21 01:08 Consult to Physician [CONS] Routine Comment: Consulting Provider: EVELYN PALOMO Physician Instructions: Reason For Exam: Acute kidney injury Primary care physician: CARGO INSPECTOR Hospitalization Condition: Stable Pertinent studies: Chest x-ray, renal ultrasound, 2D echo Hospital course: Patient is a 51-year-old male with a history of CHF, hypertension who presents from group home by EMS secondary to chest pain which has been going on for 2 days. He described it as squeezing and tightness. His blood work showed elevated troponins. His kidney function is reduced with elevated creatinine. Patient also reported that he has kidney problem and has been seen by principal cyber engineer also in [place]. Per ED notes, there is no previous medical record to compare with patient status. Patient was initiated on heparin drip, cardiology and nephrology was consulted. Patient also noted to have severe metabolic acidosis and bicarbonate drip was initiated. Cardiology evaluated the patient recommended stress test. But patient refused to stay in the hospital and left AMA. Risks of leaving AMA explained to the patient which includes cardiac arrest with possible , but patient insisted leaving AMA. Disposition: 07 LEFT AGAINST MEDICAL ADVICE Final Discharge Diagnosis (Prints w/discharge instructions): --PEÑA likely ATN. --Elevated troponin likely NSTEMI type II. --Precordial chest pain, resolved could be possibly from GERD. --Hyperkalemia. --Chronic combined systolic and diastolic heart failure. --Essential hypertension. --Metabolic acidosis Time spent for discharge: 34 minutes Core Measure Documentation - Palliative Care Palliative Care/ Comfort Measures: Not Applicable - Core Measures Any of the following diagnoses?: heart failure - Heart Failure Discharge Requirements Reason for no NAVEEN/ARB: Patient refusal Reason for no beta leobardo on DC: Patient refusal Exam - Constitutional Vitals: Temp Pulse Resp BP Pulse Ox 97.9 F 82 18 98/61 98 06/10/21 08:14 06/10/21 09:00 06/10/21 08:14 06/10/21 08:14 06/10/21 11:00 Plan Follow up with: PRIMARY CAREMD [Primary Care Provider] - 7 Days Forms: AMA Form
--- NOTE | 2021-06-12 10:59 | Electrocardiograph Report ---
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
--- NOTE | 2021-06-12 11:16 | Electrocardiograph Report ---
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
== END 2021-06-10 14:00 | disposition left against medical advice (07) ==
LOC: EEVIPCON 22:57 → ED 22:57 → 4A 06-09 00:44
PROVIDERS: ADMIT Internal Medicine Geriatric Medicine; ATTEND Internal Medicine
DX: R07.2 Precordial pain (principal); Z20.822 Contact with and (suspected) exposure to COVID-19; N17.9 Acute kidney failure, unspecified; I13.0 Hypertensive heart and chronic kidney disease with heart failure and stage 1 through stage 4 chronic kidney disease, or unspecified chronic kidney disease; I50.42 Chronic combined systolic (congestive) and diastolic (congestive) heart failure; N18.4 Chronic kidney disease, stage 4 (severe); I42.9 Cardiomyopathy, unspecified; E87.2 Acidosis; E87.5 Hyperkalemia; R77.8 Other specified abnormalities of plasma proteins; Z79.82 Long term (current) use of aspirin
CPT/HCPCS: 36415; 71045; 76770; 80048; 80053; 80061; 81001; 83036; 83935; 84300; 84484; 85014; 85018; 85025; 85049; 85520; 85610; 85730; 87641; 93005; 93306; 96361; 96365; 96366; 96375; 99285; A9270; G0378; J0360; J1644; J7030; U0003